=== PATIENT | female | born 1985 | race Two or more races ===

== ENCOUNTER 2018-03-29 14:39 | Inpatient (IN) | payer OTHER ==
[~2018-03-29] VITALS: Ht 147.3 cm; Wt 60.3 kg
[2018-04-08] MEDS ORDERED: PRENATAL TABLE1 EAC1 PO (19:36)
== END 2018-04-10 18:08 | disposition home or self-care (01) | DRG 775 ==
LOC: CIR.AMB 03-31 14:29 → EDSTATUS 03-31 14:29 → LDR 04-08 18:45 → OB/GYN 04-08 18:45 → LDR 04-15 14:38
PROC: 10E0XZZ Delivery of Products of Conception, External Approach (ICD-10-PCS; principal; 2018-04-08)
PROC: 0KQM0ZZ Repair Perineum Muscle, Open Approach (ICD-10-PCS; 2018-04-08)
PROC: 4A1HXCZ Monitoring of Products of Conception, Cardiac Rate, External Approach (ICD-10-PCS; 2018-04-08)
DX: O70.1 Second degree perineal laceration during delivery (principal); Z37.0 Single live birth; Z3A.39 39 weeks gestation of pregnancy